=== PATIENT | female | born 1980 | race African-American/Black ===

== ENCOUNTER 2016-10-03 21:36 | Emergency (ER) | payer OTHER ==
[2016-10-03 22:26] VITALS: TEMP 98; BMI 23.8
--- NOTE | 2016-10-03 22:34 | PDOC ---
History of Present Illness - General Chief Complaint: Pain Stated Complaint: PAIN Time Seen by Provider: 10/03/16 22:29 History Source: Patient - History of Present Illness Initial Comments: 10/04/16 01:32 36F with no pmh present to the Ed for vague diffuse crampy abdominal pain while holding baby, followed by nausea and urge to urinate/defecate but she only managed to urinate. Last period was September 24 10/04/16 02:12 Past History - Past Medical History Allergies/Adverse Reactions: Allergies Allergy/AdvReac Type Severity Reaction Status Date / Time No Known Allergies Allergy Verified 10/03/16 22:24 Home Medications: Ambulatory Orders NK [No Known Home Medication] 10/03/16 - Psycho/Social/Smoking Cessation Hx Suicidal Ideation: No Smoking History: Never smoked *Physical Exam - Vital Signs Last Vital Signs Temp Pulse Resp BP Pulse Ox 98 F 83 18 144/97 99 10/03/16 22:00 10/03/16 22:00 10/03/16 22:00 10/03/16 22:00 10/03/16 22:00 ED Treatment Course - LABORATORY CBC & Chemistry Diagram: 10/03/16 23:00 10/03/16 23:00 Medical Decision Making - Medical Decision Making 10/04/16 02:13 36F presenting with *DC/Admit/Observation/Transfer Diagnosis at time of Disposition: Indigestion, Vaso vagal episode - Discharge Dispostion Disposition: HOME Admit: No - Referrals Referrals: Tommy Kruse [Primary Care Provider] - - Patient Instructions Printed Discharge Instructions: Indigestion
[2016-10-03 23:21] LABS: BASOPHIL 0.5 % (0-2.0); MCH 23.8 pg (25.7-33.7); MCHC 31.8 g/dl (32.0-36.0); MEAN CELL VOLUME 74.9 fl (80-96); MEAN PLT VOLUME 8.6 fl (7.5-11.1); NEUTROPHILS 55.2 % (42.8-82.8); PLATELET COUNT 214 K/MM3 (134-434); RDW 16.5 % (11.6-15.6)
[2016-10-03 23:46] LABS: ALBUMIN 3.6 g/dl (3.4-5.0); ANION GAP 7 (8-16); BILIRUBIN,TOTAL 0.3 mg/dL (0.2-1.0); CALCIUM 8.4 mg/dL (8.5-10.1); CO2 30 mmol/L (21-32); CREATININE 0.7 mg/dL (0.55-1.02); GLUCOSE,RANDOM 115 mg/dL (74-106); SGOT/AST 14 U/L (15-37); SGPT/ALT 23 U/L (12-78); TOT PROT 6.7 g/dl (6.4-8.2)
[2016-10-03 23:49] LABS: ALK PHOS 54 U/L (45-117); CPK 234 IU/L (26-192); TROPONIN I < 0.02 ng/ml (0.00-0.05)
[2016-10-04 00:48] LABS: URINE APPEARANCE CLEAR; URINE BILIRUBIN NEGATIVE (NEGATIVE); URINE BLOOD NEGATIVE (NEGATIVE); URINE COLOR STRAW; URINE GLUCOSE (UA) NEGATIVE (NEGATIVE); URINE KETONE NEGATIVE (NEGATIVE); URINE LEUK ESTERASE NEGATIVE (NEGATIVE); URINE NITRITE NEGATIVE (NEGATIVE); URINE PROTEIN NEGATIVE (NEGATIVE); URINE UROBILINOGEN NEGATIVE mg/dL (0.2-1.0)
[2016-10-04] MEDS ORDERED: RANITIDINE HCL 150 MG TABLET (FP) PO ONE (01:32)
[2016-10-04] MEDS ORDERED: RANITIDINE HCL 150 MG TABLET (FP) ONE (01:52)
[2016-10-04 02:06] VITALS: BP 144/90; PULSE 68
--- NOTE | 2016-10-04 10:10 | EKG ---
Test Reason : Blood Pressure : / mmHG Vent. Rate : 068 BPM Atrial Rate : 068 BPM P-R Int : 168 ms QRS Dur : 086 ms QT Int : 388 ms P-R-T Axes : 053 072 047 degrees QTc Int : 412 ms NORMAL SINUS RHYTHM EARLY REPOLARIZATION NO PREVIOUS ECGS AVAILABLE Confirmed by JAMI OLIVARES MD ([id number]) on 10/04/2016 10:10:45 AM Referred By: Confirmed By:JAMI OLIVARES MD
== END 2016-10-04 02:20 | disposition home or self-care (01) ==
LOC: JER 21:36
DX: K30 Functional dyspepsia (principal); R55 Syncope and collapse
CPT/HCPCS: 36415; 80053; 81003; 82553; 84484; 84703; 85025; 85379; 93005; 93010; 99282-25